=== PATIENT | male | born 1970 | race Two or more races ===

== ENCOUNTER 2020-12-19 10:10 | Emergency (ER) | payer OTHER ==
[~2020-12-19] VITALS: Ht 167.6 cm; Wt 65.8 kg
[2020-12-19] MEDS ORDERED: SKELAXIN800 MG PO (14:49)
[2020-12-19] MEDS ORDERED: MEDROLPACK PO (14:49)
[2020-12-19] MEDS ORDERED: PERCOCET 5-3251 EACH PO (14:49)
[2020-12-19] MEDS ORDERED: SKELAGESIC PO (14:49)
== END 2020-12-19 14:53 | disposition home or self-care (01) ==
LOC: ER 10:10
DX: M54.42 Lumbago with sciatica, left side (principal); M79.662 Pain in left lower leg

== ENCOUNTER → 2020-12-20 | Outpatient (CLI) | payer OTHER ==
[~2020-12-20] MED LIST: MEDROLPACK PO; PERCOCET 5-3251 EACH PO; SKELAGESIC PO; SKELAXIN800 MG PO
== END | disposition home or self-care (01) ==
LOC: MRI 13:15
PROVIDERS: ATTEND General Practice
DX: M54.31 Sciatica, right side (principal); M54.32 Sciatica, left side
CPT/HCPCS: 72148

== ENCOUNTER 2020-12-24 11:52 | Outpatient (CLI) | payer OTHER | END 2020-12-24 12:05 | disposition home or self-care (01) | LOC: RAD 11:52 | PROVIDERS: ATTEND Physical Medicine & Rehabilitation | DX: M54.2 Cervicalgia (principal); M17.0 Bilateral primary osteoarthritis of knee ==